=== PATIENT | female | born 1995 | race Caucasian/White ===

== ENCOUNTER 2019-04-15 04:20 | Inpatient (IN) | payer OTHER ==
[2019-04-15] VITALS (10 sets, daily range): BP systolic 105–132; BP diastolic 64–83
[~2019-04-15] VITALS: Ht 167.6 cm; Wt 75.3 kg
[~2019-04-15 04:20] MED LIST: ABILIFY MAINTE300 M1 IM; ABILIFY10 MG PO; AMOXICILLIN500 M2 PO
[2019-04-15 05:18] LABS: BILIRUBIN NEGATIVE (NEGATIVE); BLOOD 2+ (NEGATIVE); CLARITY SL CLOUDY (CLEAR); COLOR YELLOW (YELLOW); GLUCOSE NEGATIVE (NEGATIVE); KETONE NEGATIVE (NEGATIVE); LEUKO ESTERASE 3+ (NEGATIVE); NITRITE NEGATIVE (NEGATIVE); UROBILINOGEN 0.2 E.U./dl (0.2-1.0)
[2019-04-15 05:33] LABS: RBC TNTC rbc/hpf (0-2); WBC TNTC wbc/hpf (0-5)
[2019-04-15 05:34] LABS: BACTERIA 1+
[2019-04-15 06:00] LABS: BASO % 0.2 % (0.0-1.0); EOS # 0.2 10*3/uL (0.0-0.4); EOS % 1.3 % (1.0-4.0); HEMOGLOBIN 10.7 g/dl (12.0-16.0); LYMPH # 1.6 10*3/uL (1.3-4.4); LYMPH % 9.8 % (27.0-41.0); MEAN CELL VOLUME 82.9 fl (81.0-99.0); MEAN CORPUSCULAR HGB 25.4 pg (27.0-31.0); MEAN CORPUSCULAR HGB CONC 30.6 g/dl (33.0-37.0); MEAN PLATELET VOLUME 9.1 fl (9.6-12.3); MONO # 1.1 10*3/uL (0.1-1.0); NEUT % 81.4 % (47.0-73.0); PLATELET COUNT AUTOMATED 365 10*3/uL (130-400); RED BLOOD COUNT 4.22 10*6/uL (4.10-5.10); RED CELL DISTRI WIDTH 13.2 % (0-14.5)
--- NOTE | 2019-04-15 06:09 | NUR ---
PATIENT STILL IN MILD PIN BUT SHE STATES THAT HER PAIN MEDICATION DID HELP WITH HER PAIN.
[2019-04-15 06:17] LABS: ALBUMIN 3.5 gm/dl (3.1-4.5); ALKALINE PHOSPHATASE 145 U/L (45-117); BUN 13 mg/dl (7-24); CHLORIDE 105 mmol/L (98-107); LIPASE 138 U/L (73-393); POTASSIUM 3.6 mmol/L (3.5-5.1); SGOT/AST 55 IU/L (3-35); SGPT/ALT 36 U/L (12-78); SODIUM 139 mmol/L (136-145); TOTAL PROTEIN 7.2 gm/dL (6.4-8.2)
--- NOTE | 2019-04-15 11:12 | NUR ---
PT RESTING IN BED WITH EYES CLOSED.
[2019-04-15] MEDS ORDERED: [UNRECOGNIZED DRUG - OTHER] PO (11:36)
--- NOTE | 2019-04-15 11:47 | NUR ---
MSADMTime: N A 23 year old admitted to 5E under services of KARLA MANCUSO DO. Pt. arrived via bed from ER. Chief complaint: ABDM PAIN. IDANIA BARON
--- NOTE | 2019-04-15 12:47 | NUR ---
MORPHINE GIVEN FOR C/O ABDM. PAIN. RATES 8/10 ON PAIN SCALE. WILL MONITOR.
--- NOTE | 2019-04-15 13:50 | NUR ---
UNABLE TO ACESS EFFECT OF MORPHINE. PT IS IN SURGERY.
--- NOTE | 2019-04-15 17:33 | NUR ---
NORCO GIVEN FOR C/O ABDM. PAIN. RATES 8/10 ON PAIN SCALE. WILL MONITOR.
--- NOTE | 2019-04-15 18:35 | NUR ---
heriberto effective per pt.
--- NOTE | 2019-04-15 20:15 | NUR ---
RESTING IN BED WITH HOB ELEVATED. IV FLUIDS INFUSING INTO RIGHT ARM WITHOUT DIFFICULTY; SITE ASYMPTOMATIC. LUNGS CLEAR AT THIS TIME WITH NO COUGH NOTED. PT. STATED THAT SHE HAS BEEN UP WALKING IN ROOM & GOING TO THE BATHROOM. STATES THAT SHE IS VOIDING WITHOUT DIFFICULTY & HAD A BM YESTERDAY. NO DISTRESS NOTED; CALL LIGHT WITHIN REACH.
--- NOTE | 2019-04-15 20:17 | NUR ---
NEDICATED WITH MS 2 MG SLOW IV PUSH FOR C/O ABDOMINAL PAIN RATED A 4/10.
--- NOTE | 2019-04-15 20:23 | NUR ---
C/O NAUSEA; MEDICATED WITH ZOFRAN.
--- NOTE | 2019-04-15 23:52 | NUR ---
PATIENT MEDICATED WITH NORCO PER PRN ORDER FOR C/O C/O BETWEEN SHOULDER BLADES AND ABDOMINAL PAIN RATED BETWEEN 3-5/10 WITH 10 BEING THE WORST. SEE EMAR. REINFORCED USE OF CALL LIGHT.
[2019-04-16] VITALS: BP 128/73
--- NOTE | 2019-04-16 02:00 | NUR ---
RESTING IN BED; VOICES NO C/O PAIN AT THIS TIME. IV FLUIDS INFUSING ORDERED. CALL LIGHT WITHIN REACH.
--- NOTE | 2019-04-16 06:30 | NUR ---
RESTING IN BED WITH EYES CLOSED; AROUSES EASILY UPON MY ENTERING ROOM. PT. VOICES NO C/O AT THIS TIME. CALL LIGHT WITHIN REACH.
[2019-04-16 06:35] LABS: BASO % 0.2 % (0.0-1.0); EOS # 0.1 10*3/uL (0.0-0.4); EOS % 0.4 % (1.0-4.0); HEMATOCRIT 29.8 % (37.0-47.0); HEMOGLOBIN 9.2 g/dl (12.0-16.0); LYMPH # 2.1 10*3/uL (1.3-4.4); LYMPH % 16.6 % (27.0-41.0); MEAN CELL VOLUME 84.2 fl (81.0-99.0); MEAN CORPUSCULAR HGB CONC 30.9 g/dl (33.0-37.0); MEAN PLATELET VOLUME 9.4 fl (9.6-12.3); MONO # 1.1 10*3/uL (0.1-1.0); MONO % 8.3 % (3.0-9.0); NEUT # 9.4 10*3/uL (2.3-7.9); NEUT % 74.2 % (47.0-73.0); PLATELET COUNT AUTOMATED 303 10*3/uL (130-400); RED BLOOD COUNT 3.54 10*6/uL (4.10-5.10); RED CELL DISTRI WIDTH 13.4 % (0-14.5); WHITE BLOOD COUNT 12.7 10*3/uL (4.8-10.8)
[2019-04-16 06:59] LABS: ALBUMIN 2.7 gm/dl (3.1-4.5); ALKALINE PHOSPHATASE 165 U/L (45-117); BUN 12 mg/dl (7-24); CHLORIDE 109 mmol/L (98-107); CREATININE 0.88 mg/dL (0.55-1.02); PHOSPHOROUS 3.9 mg/dL (2.5-4.9); POTASSIUM 3.9 mmol/L (3.5-5.1); SGOT/AST 122 IU/L (3-35); SGPT/ALT 212 U/L (12-78); SODIUM 140 mmol/L (136-145)
[2019-04-16 08:00] VITALS: BP 114/67
--- NOTE | 2019-04-16 09:56 | NUR ---
PATIENT RESTING QUIETLY IN BED. NO VOICED COMPLAINTS. WILL CONTINUE TO MONITOR. VSS. CALL LIGHT WITHIN REACH.
[2019-04-16] MEDS ORDERED: NORCO 5-325 TA1 EACH PO (11:31)
--- NOTE | 2019-04-16 13:48 | NUR ---
Discharge instructions reviewed with patient/family. Patient receptive and verbalizes understanding. Follow-up care arranged. Written instructions given to patient/family. KELLY BERMAN.
== END 2019-04-16 13:48 | disposition home or self-care (01) | DRG 951 ==
LOC: ED 04:20 → 5E 10:52
PROVIDERS: Emergency Medicine; Surgery; ADMIT Internal Medicine
PROC: 0FT44ZZ Resection of Gallbladder, Percutaneous Endoscopic Approach (ICD-10-PCS; principal; 2019-04-15)
DX: O85 Puerperal sepsis (principal); R65.20 Severe sepsis without septic shock; K81.0 Acute cholecystitis; A59.03 Trichomonal cystitis and urethritis; G89.18 Other acute postprocedural pain; R74.0 Nonspecific elevation of levels of transaminase and lactic acid dehydrogenase [LDH]; D50.9 Iron deficiency anemia, unspecified; O99.03 Anemia complicating the puerperium; O25.3 Malnutrition in the puerperium; F20.9 Schizophrenia, unspecified; O99.63 Diseases of the digestive system complicating the puerperium; O99.345 Other mental disorders complicating the puerperium; O99.89 Other specified diseases and conditions complicating pregnancy, childbirth and the puerperium; F41.9 Anxiety disorder, unspecified; F32.9 Major depressive disorder, single episode, unspecified; R00.1 Bradycardia, unspecified; E87.8 Other disorders of electrolyte and fluid balance, not elsewhere classified; Z91.040 Latex allergy status; Z82.49 Family history of ischemic heart disease and other diseases of the circulatory system; Z79.899 Other long term (current) drug therapy

== ENCOUNTER 2019-06-16 16:06 | Emergency (ER) | payer OTHER ==
[~2019-06-16] VITALS: Ht 172.7 cm; Wt 65.8 kg
[~2019-06-16 16:06] MED LIST changes: +NORCO 5-325 TA1 EACH PO; +[UNRECOGNIZED DRUG - OTHER] PO
[2019-06-16 17:17] LABS: BASO % 0.4 % (0.0-1.0); EOS # 0.3 10*3/uL (0.0-0.4); EOS % 3.5 % (1.0-4.0); HEMATOCRIT 35.9 % (37.0-47.0); HEMOGLOBIN 10.7 g/dl (12.0-16.0); LYMPH # 3.4 10*3/uL (1.3-4.4); LYMPH % 35.4 % (27.0-41.0); MEAN CELL VOLUME 78.4 fl (81.0-99.0); MEAN CORPUSCULAR HGB 23.4 pg (27.0-31.0); MEAN CORPUSCULAR HGB CONC 29.8 g/dl (33.0-37.0); MEAN PLATELET VOLUME 9.5 fl (9.6-12.3); MONO # 0.8 10*3/uL (0.1-1.0); MONO % 7.7 % (3.0-9.0); NEUT # 5.1 10*3/uL (2.3-7.9); NEUT % 52.8 % (47.0-73.0); PLATELET COUNT AUTOMATED 307 10*3/uL (130-400); RED BLOOD COUNT 4.58 10*6/uL (4.10-5.10); RED CELL DISTRI WIDTH 14.7 % (0-14.5); WHITE BLOOD COUNT 9.7 10*3/uL (4.8-10.8)
[2019-06-16 17:32] LABS: ALBUMIN 3.8 gm/dl (3.1-4.5); ALKALINE PHOSPHATASE 78 U/L (45-117); BUN 9 mg/dl (7-24); CHLORIDE 109 mmol/L (98-107); CREATININE 0.75 mg/dL (0.55-1.02); LIPASE 93 U/L (73-393); POTASSIUM 3.8 mmol/L (3.5-5.1); SGOT/AST 17 IU/L (3-35); SGPT/ALT 20 U/L (12-78); SODIUM 140 mmol/L (136-145); TOTAL PROTEIN 7.4 gm/dL (6.4-8.2)
[2019-06-16 18:02] LABS: CLARITY CLOUDY (CLEAR); COLOR YELLOW (YELLOW)
[2019-06-16 18:03] LABS: BILIRUBIN NEGATIVE (NEGATIVE); BLOOD TRACE-INTACT (NEGATIVE); GLUCOSE NEGATIVE (NEGATIVE); KETONE NEGATIVE (NEGATIVE); LEUKO ESTERASE 3+ (NEGATIVE); NITRITE NEGATIVE (NEGATIVE); PH 6.5 (5.0-9.0); SPECIFIC GRAVITY 1.015 (1.005-1.030); UROBILINOGEN 0.2 E.U./dl (0.2-1.0)
[2019-06-16 18:04] LABS: BACTERIA 2+; EPITHELIAL CELLS TNTC; WBC 51-100 wbc/hpf (0-5)
[2019-06-16] MEDS ORDERED: SEPTDS PO (18:29)
== END 2019-06-16 18:40 | disposition home or self-care (01) ==
LOC: ED 16:06
PROVIDERS: Physician Assistant
DX: N39.0 Urinary tract infection, site not specified (principal); R11.2 Nausea with vomiting, unspecified; Z91.040 Latex allergy status; Z79.899 Other long term (current) drug therapy; Z90.49 Acquired absence of other specified parts of digestive tract

== ENCOUNTER 2019-07-15 22:20 | Inpatient (IN) | payer OTHER ==
[~2019-07-15] VITALS: Ht 172.7 cm; Wt 73.9 kg
[~2019-07-15 22:20] MED LIST changes: +SEPTDS PO
[2019-07-15 22:26] VITALS: BP 132/75
[2019-07-15 23:37] LABS: BILIRUBIN NEGATIVE (NEGATIVE); BLOOD NEGATIVE (NEGATIVE); CLARITY SL CLOUDY (CLEAR); COLOR YELLOW (YELLOW); GLUCOSE NEGATIVE (NEGATIVE); KETONE TRACE (NEGATIVE); LEUKO ESTERASE 2+ (NEGATIVE); NITRITE NEGATIVE (NEGATIVE); UROBILINOGEN 0.2 E.U./dl (0.2-1.0)
[2019-07-15 23:38] LABS: EPITHELIAL CELLS 40-45
[2019-07-15 23:39] LABS: BACTERIA 1+; WBC 16-20 wbc/hpf (0-5)
[2019-07-15 23:50] LABS: BASO # 0.1 10*3/uL (0.0-0.1); BASO % 0.3 % (0.0-1.0); EOS # 0.2 10*3/uL (0.0-0.4); EOS % 1.1 % (1.0-4.0); HEMATOCRIT 43.8 % (37.0-47.0); LYMPH % 4.4 % (27.0-41.0); MEAN CELL VOLUME 77.7 fl (81.0-99.0); MEAN CORPUSCULAR HGB CONC 29.7 g/dl (33.0-37.0); MEAN PLATELET VOLUME 9.7 fl (9.6-12.3); MONO # 1.5 10*3/uL (0.1-1.0); MONO % 6.6 % (3.0-9.0); NEUT # 19.1 10*3/uL (2.3-7.9); NEUT % 87.2 % (47.0-73.0); PLATELET COUNT AUTOMATED 378 10*3/uL (130-400); RED BLOOD COUNT 5.64 10*6/uL (4.10-5.10); RED CELL DISTRI WIDTH 15.9 % (0-14.5); WHITE BLOOD COUNT 21.9 10*3/uL (4.8-10.8)
[2019-07-16 00:05] LABS: ALBUMIN 4.4 gm/dl (3.1-4.5); ALKALINE PHOSPHATASE 97 U/L (45-117); BUN 13 mg/dl (7-24); CHLORIDE 104 mmol/L (98-107); CREATININE 0.95 mg/dL (0.55-1.02); POTASSIUM 3.9 mmol/L (3.5-5.1); SGOT/AST 16 IU/L (3-35); SGPT/ALT 22 U/L (12-78); SODIUM 137 mmol/L (136-145); TOTAL PROTEIN 8.6 gm/dL (6.4-8.2)
[2019-07-16 01:50] VITALS: BP 135/92
[2019-07-16 06:19] LABS: HEMOGLOBIN 12.2 g/dl (12.0-16.0); MEAN CELL VOLUME 77.4 fl (81.0-99.0); MEAN CORPUSCULAR HGB CONC 29.8 g/dl (33.0-37.0); MEAN PLATELET VOLUME 10.1 fl (9.6-12.3); PLATELET COUNT AUTOMATED 315 10*3/uL (130-400); RED CELL DISTRI WIDTH 16.1 % (0-14.5); WHITE BLOOD COUNT 17.5 10*3/uL (4.8-10.8)
[2019-07-16 06:51] LABS: BUN 15 mg/dl (7-24); CHLORIDE 109 mmol/L (98-107); CREATININE 0.96 mg/dL (0.55-1.02); SODIUM 140 mmol/L (136-145)
[2019-07-16 07:39] LABS: MICROCYTOSIS SLIGHT; PLATELET SUFFICIENCY NORMAL (NORMAL); TOTAL CELLS COUNTED 100 #CELLS
[2019-07-16 08:00] VITALS: BP 124/62
[2019-07-16 16:00] VITALS: BP 128/68
[2019-07-17] VITALS: BP 112/61
[2019-07-17 08:00] VITALS: BP 92/44
[2019-07-17 16:00] VITALS: BP 110/58
[2019-07-17 20:00] VITALS: BP 113/80
[2019-07-18] VITALS: BP 113/63
[2019-07-18 06:52] LABS: BASO % 0.2 % (0.0-1.0); EOS # 0.2 10*3/uL (0.0-0.4); EOS % 2.4 % (1.0-4.0); HEMATOCRIT 30.2 % (37.0-47.0); HEMOGLOBIN 8.9 g/dl (12.0-16.0); LYMPH # 3.2 10*3/uL (1.3-4.4); LYMPH % 39.3 % (27.0-41.0); MEAN CELL VOLUME 78.6 fl (81.0-99.0); MEAN CORPUSCULAR HGB 23.2 pg (27.0-31.0); MEAN CORPUSCULAR HGB CONC 29.5 g/dl (33.0-37.0); MEAN PLATELET VOLUME 10.5 fl (9.6-12.3); MONO # 0.7 10*3/uL (0.1-1.0); MONO % 9.1 % (3.0-9.0); NEUT # 3.9 10*3/uL (2.3-7.9); NEUT % 48.8 % (47.0-73.0); PLATELET COUNT AUTOMATED 243 10*3/uL (130-400); RED BLOOD COUNT 3.84 10*6/uL (4.10-5.10); RED CELL DISTRI WIDTH 16.9 % (0-14.5)
[2019-07-18 07:24] LABS: CHLORIDE 114 mmol/L (98-107); POTASSIUM 3.5 mmol/L (3.5-5.1); SODIUM 143 mmol/L (136-145)
[2019-07-18 07:28] LABS: BUN 10 mg/dl (7-24); CREATININE 0.74 mg/dL (0.55-1.02)
[2019-07-18 08:00] VITALS: BP 123/65
[2019-07-18 12:00] VITALS: BP 118/70
[2019-07-18 16:00] VITALS: BP 119/62
[2019-07-18 20:00] VITALS: BP 125/72
[2019-07-19] VITALS: BP 116/78
[2019-07-19 07:12] LABS: BASO % 0.3 % (0.0-1.0); EOS # 0.3 10*3/uL (0.0-0.4); EOS % 4.2 % (1.0-4.0); LYMPH # 2.7 10*3/uL (1.3-4.4); LYMPH % 40.4 % (27.0-41.0); MEAN CELL VOLUME 77.5 fl (81.0-99.0); MEAN CORPUSCULAR HGB 23.3 pg (27.0-31.0); MEAN PLATELET VOLUME 10.7 fl (9.6-12.3); MONO # 0.6 10*3/uL (0.1-1.0); MONO % 8.4 % (3.0-9.0); NEUT # 3.1 10*3/uL (2.3-7.9); NEUT % 46.4 % (47.0-73.0); PLATELET COUNT AUTOMATED 231 10*3/uL (130-400); RED BLOOD COUNT 3.87 10*6/uL (4.10-5.10); RED CELL DISTRI WIDTH 16.6 % (0-14.5); WHITE BLOOD COUNT 6.7 10*3/uL (4.8-10.8)
[2019-07-19 07:28] LABS: BUN 7 mg/dl (7-24); CHLORIDE 112 mmol/L (98-107); CREATININE 0.73 mg/dL (0.55-1.02); POTASSIUM 3.7 mmol/L (3.5-5.1); SODIUM 142 mmol/L (136-145)
[2019-07-19 08:00] VITALS: BP 125/74
[2019-07-19] MEDS ORDERED: HYOSCYAMINE0.125 M2 PO (10:51)
[2019-07-19] MEDS ORDERED: QUESTRAN LIGHT4 GM PO (10:51)
== END 2019-07-19 11:45 | disposition home or self-care (01) | DRG 463 ==
LOC: ED 22:20 → 5E 07-16 01:22
PROVIDERS: Nurse Practitioner; ADMIT Internal Medicine
DX: N10 Acute pyelonephritis (principal); F41.1 Generalized anxiety disorder; F20.9 Schizophrenia, unspecified; F32.9 Major depressive disorder, single episode, unspecified; A08.4 Viral intestinal infection, unspecified; Z90.49 Acquired absence of other specified parts of digestive tract; Z91.040 Latex allergy status; Z82.49 Family history of ischemic heart disease and other diseases of the circulatory system

== ENCOUNTER 2021-12-14 10:35 | Emergency (ER) | payer OTHER ==
[~2021-12-14] VITALS: Ht 172.7 cm; Wt 77.1 kg
[~2021-12-14 10:35] MED LIST changes: +HYOSCYAMINE0.125 M2 PO; +QUESTRAN LIGHT4 GM PO
[2021-12-14] MEDS ORDERED: Ondansetron4 MG PO ×2 (10:55)
[2021-12-14 11:03] LABS: BASO % 0.2 % (0.0-1.0); EOS % 0.3 % (1.0-4.0); HEMATOCRIT 42.6 % (37.0-47.0); LYMPH # 1.3 10*3/uL (1.3-4.4); LYMPH % 10.8 % (27.0-41.0); MEAN CELL VOLUME 83.7 fl (81.0-99.0); MEAN CORPUSCULAR HGB 27.3 pg (27.0-31.0); MEAN CORPUSCULAR HGB CONC 32.6 g/dl (33.0-37.0); MEAN PLATELET VOLUME 9.5 fl (9.6-12.3); MONO # 1.1 10*3/uL (0.1-1.0); MONO % 9.1 % (3.0-9.0); NEUT # 9.6 10*3/uL (2.3-7.9); NEUT % 79.2 % (47.0-73.0); PLATELET COUNT AUTOMATED 222 10*3/uL (130-400); RED BLOOD COUNT 5.09 10*6/uL (4.10-5.10); RED CELL DISTRI WIDTH 13.9 % (0-14.5); WHITE BLOOD COUNT 12.1 10*3/uL (4.8-10.8)
[2021-12-14 11:19] LABS: ALKALINE PHOSPHATASE 85 U/L (45-117); BUN 5 mg/dl (7-24); CHLORIDE 107 mmol/L (98-107); CREATININE 0.63 mg/dL (0.55-1.02); POTASSIUM 3.7 mmol/L (3.5-5.1); SGOT/AST 11 IU/L (3-35); SGPT/ALT 16 U/L (12-78); SODIUM 135 mmol/L (136-145); TOTAL PROTEIN 7.7 gm/dL (6.4-8.2)
[2021-12-14] MEDS ORDERED: PHENERGAN25 M3 PO (12:00)
== END 2021-12-14 12:14 | disposition home or self-care (01) ==
LOC: ED 10:35
PROVIDERS: Emergency Medicine
DX: J10.1 Influenza due to other identified influenza virus with other respiratory manifestations (principal); Z20.822 Contact with and (suspected) exposure to COVID-19; R11.2 Nausea with vomiting, unspecified; Z91.040 Latex allergy status; Z79.899 Other long term (current) drug therapy; Z90.49 Acquired absence of other specified parts of digestive tract

== ENCOUNTER 2021-12-14 20:09 | Emergency (ER) | payer OTHER ==
[~2021-12-14] VITALS: Ht 172.7 cm; Wt 79.4 kg
[~2021-12-14 20:09] MED LIST changes: +Ondansetron4 MG PO; +PHENERGAN25 M3 PO
== END 2021-12-14 21:21 | disposition home or self-care (01) ==
LOC: ED 20:09
PROVIDERS: Physician Assistant
DX: S30.860A Insect bite (nonvenomous) of lower back and pelvis, initial encounter (principal); Z90.49 Acquired absence of other specified parts of digestive tract; Z79.899 Other long term (current) drug therapy; Z91.040 Latex allergy status; W57.XXXA Bitten or stung by nonvenomous insect and other nonvenomous arthropods, initial encounter; Y93.89 Activity, other specified; Y92.89 Other specified places as the place of occurrence of the external cause; Y99.8 Other external cause status

== ENCOUNTER 2022-05-27 07:07 | Emergency (ER) | payer OTHER ==
[~2022-05-27] VITALS: Ht 172.7 cm; Wt 95.7 kg
[2022-05-27] MEDS ORDERED: AMOXICILLIN500 M3 PO (08:12)
[2022-05-27] MEDS ORDERED: TRIMOX,POL250 MG/5 M PO (08:38)
== END 2022-05-27 08:20 | disposition home or self-care (01) ==
LOC: ED 07:07
DX: O99.513 Diseases of the respiratory system complicating pregnancy, third trimester (principal); J02.0 Streptococcal pharyngitis; Z3A.34 34 weeks gestation of pregnancy; Z91.040 Latex allergy status; Z90.49 Acquired absence of other specified parts of digestive tract

== ENCOUNTER 2022-07-21 07:49 | Emergency (ER) | payer OTHER ==
[~2022-07-21] VITALS: Wt 95.3 kg
[~2022-07-21 07:49] MED LIST changes: +AMOXICILLIN500 M3 PO; +TRIMOX,POL250 MG/5 M PO
[2022-07-21] MEDS ORDERED: CLEOCIN75 MG/5 ML PO (08:13)
== END 2022-07-21 08:19 | disposition home or self-care (01) ==
LOC: ED 07:49
DX: K08.89 Other specified disorders of teeth and supporting structures (principal); F32.A Depression, unspecified; F41.9 Anxiety disorder, unspecified; Z91.040 Latex allergy status; Z90.49 Acquired absence of other specified parts of digestive tract

== ENCOUNTER 2023-03-15 19:55 | Emergency (ER) | payer OTHER ==
[~2023-03-15] VITALS: Ht 162.5 cm; Wt 59.0 kg
[~2023-03-15 19:55] MED LIST changes: +CLEOCIN75 MG/5 ML PO
== END 2023-03-15 21:38 | disposition home or self-care (01) ==
LOC: ED 19:55
DX: J02.9 Acute pharyngitis, unspecified (principal); B97.4 Respiratory syncytial virus as the cause of diseases classified elsewhere; Z20.822 Contact with and (suspected) exposure to COVID-19; R19.7 Diarrhea, unspecified; R11.0 Nausea; F17.200 Nicotine dependence, unspecified, uncomplicated; Z91.040 Latex allergy status; Z79.2 Long term (current) use of antibiotics; Z79.899 Other long term (current) drug therapy; Z90.49 Acquired absence of other specified parts of digestive tract

== ENCOUNTER 2023-09-07 17:56 | Emergency (ER) | payer OTHER ==
[~2023-09-07] VITALS: Ht 172.7 cm; Wt 68.0 kg
[2023-09-07] MEDS ORDERED: Naloxone Hydrochloride 2 MG/2 ML SYR ONE (18:13)
[2023-09-07] MEDS ORDERED: Midazolam Hydrochloride 5 MG/ML VIAL INH ONE (18:20)
[2023-09-07 18:25] LABS: BASO % 0.1 % (0.0-1.0); HEMATOCRIT 37.4 % (37.0-47.0); LYMPH # 1.4 10*3/uL (1.3-4.4); LYMPH % 10.2 % (27.0-41.0); MEAN CELL VOLUME 78.7 fl (81.0-99.0); MEAN CORPUSCULAR HGB 25.1 pg (27.0-31.0); MEAN CORPUSCULAR HGB CONC 31.8 g/dl (33.0-37.0); MEAN PLATELET VOLUME 8.9 fl (9.6-12.3); MONO # 0.9 10*3/uL (0.1-1.0); MONO % 6.7 % (3.0-9.0); NEUT # 11.3 10*3/uL (2.3-7.9); NEUT % 82.6 % (47.0-73.0); PLATELET COUNT AUTOMATED 331 10*3/uL (130-400); RED BLOOD COUNT 4.75 10*6/uL (4.10-5.10); RED CELL DISTRI WIDTH 14.2 % (0-14.5); WHITE BLOOD COUNT 13.7 10*3/uL (4.8-10.8)
[2023-09-07] MEDS ORDERED: ELFOLATE7.5 MG PO (18:34)
[2023-09-07] MEDS ORDERED: PRISTIQ50 MG PO (18:34)
[2023-09-07] MEDS ORDERED: DIAZEPAM5 MG PO (18:34)
[2023-09-07] MEDS ORDERED: INCASSIA0.35 MG PO (18:35)
[2023-09-07] MEDS ORDERED: DOCUSATE SOD100 MG PO (18:36)
[2023-09-07 18:46] LABS: ALKALINE PHOSPHATASE 81 U/L (46-116); BUN 7 mg/dl (9-23); CHLORIDE 107 mmol/L (98-107); POTASSIUM 3.2 mmol/L (3.4-5.1); SGPT/ALT 13 U/L (5-49); TOTAL PROTEIN 8.3 gm/dL (6.0-8.0)
[2023-09-07] MEDS ORDERED: Ziprasidone Mesylate 20 MG VIAL IM ONE (19:05)
[2023-09-07] MEDS ORDERED: Water, Sterile 10 ML VIAL IM ONE (19:15)
[2023-09-07] MEDS ORDERED: Water, Sterile 10 ML VIAL ONE (19:21)
[2023-09-07 19:41] LABS: BILIRUBIN Negative (Negative); BLOOD 3+ (Negative); CLARITY Cloudy (Clear); COLOR Yellow (Yellow); GLUCOSE Negative (Negative); KETONE 3+ (Negative); NITRITE Negative (Negative); PH 5.5 (4.5-8.0); SPECIFIC GRAVITY >= 1.030 (1.001-1.030)
[2023-09-07 19:47] LABS: URINE AMPHETAMINES Negative (1000ng/ml); URINE BARBITURATES Negative (200ng/ml); URINE BENZODIAZEPINES Positive (200ng/ml); URINE CANNABINOIDS (THC) Positive (50ng/ml); URINE COCAINE Negative (300ng/ml); URINE METHADONE Negative (300ng/ml); URINE OPIATES Negative (300ng/ml); URINE PHENCYCLIDINE Negative (25ng/ml)
[2023-09-07 19:49] LABS: BACTERIA 1+; EPITHELIAL CELLS 21-30; LEUKO ESTERASE 1+ (Negative); MUCOUS 1+; WBC 16-20 wbc/hpf (0-5)
[2023-09-08] MEDS ORDERED: POTASSIUM CHLORIDE 20 MEQ TAB PO ONE (06:45)
[2023-09-08] MEDS ORDERED: Fosfomycin Tromethamine 3 GM PDS PO ONE (06:45)
== END 2023-09-08 08:08 ==
LOC: ED 17:56
PROVIDERS: Physician Assistant Medical
DX: F29 Unspecified psychosis not due to a substance or known physiological condition (principal); Z91.040 Latex allergy status; Z79.899 Other long term (current) drug therapy; Z90.49 Acquired absence of other specified parts of digestive tract

== ENCOUNTER 2023-09-29 22:24 | Emergency (ER) | payer OTHER ==
[~2023-09-29] VITALS: Ht 172.7 cm; Wt 69.4 kg
[~2023-09-29 22:24] MED LIST changes: +DIAZEPAM5 MG PO; +DOCUSATE SOD100 MG PO; +ELFOLATE7.5 MG PO; +INCASSIA0.35 MG PO; +PRISTIQ50 MG PO
[2023-09-29 23:45] LABS: BILIRUBIN Negative (Negative); BLOOD Negative (Negative); CLARITY Clear (Clear); COLOR Yellow (Yellow); GLUCOSE Negative (Negative); KETONE Negative (Negative); LEUKO ESTERASE Negative (Negative); NITRITE Negative (Negative); PH 7.5 (4.5-8.0); UROBILINOGEN 0.2 E.U./dl (0.0-1.0)
[2023-09-29 23:53] LABS: EPITHELIAL CELLS 21-30; WBC 0-2 wbc/hpf (0-5)
[2023-09-30] MEDS ORDERED: CEPHALEXIN500 M1 PO (00:16)
[2023-09-30] MEDS ORDERED: CEPHALEXIN 500 MG CAP PO ONE (00:20)
== END 2023-09-30 00:45 | disposition home or self-care (01) ==
LOC: ED 22:24
PROVIDERS: Emergency Medicine
DX: R30.0 Dysuria (principal); R35.0 Frequency of micturition; R30.9 Painful micturition, unspecified; M54.50 Low back pain, unspecified; E43 Unspecified severe protein-calorie malnutrition; F41.9 Anxiety disorder, unspecified; F32.A Depression, unspecified; Z98.51 Tubal ligation status; Z91.040 Latex allergy status; Z79.899 Other long term (current) drug therapy; Z90.49 Acquired absence of other specified parts of digestive tract

== ENCOUNTER 2023-11-12 11:16 | Emergency (ER) | payer OTHER ==
[~2023-11-12] VITALS: Ht 172.7 cm; Wt 64.4 kg
[~2023-11-12 11:16] MED LIST changes: +CEPHALEXIN500 M1 PO
[2023-11-12 11:59] LABS: BILIRUBIN Negative (Negative); BLOOD 3+ (Negative); CLARITY Clear (Clear); COLOR Yellow (Yellow); GLUCOSE Negative (Negative); KETONE Negative (Negative); LEUKO ESTERASE Negative (Negative); NITRITE Negative (Negative); PH 5.5 (4.5-8.0); UROBILINOGEN 0.2 E.U./dl (0.0-1.0)
[2023-11-12 12:06] LABS: BASO # 0.1 10*3/uL (0.0-0.1); BASO % 0.5 % (0.0-1.0); EOS # 0.6 10*3/uL (0.0-0.4); EOS % 6.9 % (1.0-4.0); HEMATOCRIT 37.6 % (37.0-47.0); LYMPH # 2.4 10*3/uL (1.3-4.4); LYMPH % 25.9 % (27.0-41.0); MEAN CELL VOLUME 82.6 fl (81.0-99.0); MEAN CORPUSCULAR HGB 24.6 pg (27.0-31.0); MEAN CORPUSCULAR HGB CONC 29.8 g/dl (33.0-37.0); MEAN PLATELET VOLUME 9.2 fl (9.6-12.3); MONO # 0.7 10*3/uL (0.1-1.0); MONO % 7.7 % (3.0-9.0); NEUT # 5.5 10*3/uL (2.3-7.9); NEUT % 58.6 % (47.0-73.0); PLATELET COUNT AUTOMATED 321 10*3/uL (130-400); RED BLOOD COUNT 4.55 10*6/uL (4.10-5.10); RED CELL DISTRI WIDTH 14.6 % (0-14.5); WHITE BLOOD COUNT 9.3 10*3/uL (4.8-10.8)
[2023-11-12 12:08] LABS: RBC TNTC rbc/hpf (0-2)
[2023-11-12 12:31] LABS: ALKALINE PHOSPHATASE 92 U/L (46-116); BETA-HCG, QUANT < 3.0 mIU/mL (3-10); BUN 11 mg/dl (9-23); CHLORIDE 107 mmol/L (98-107); POTASSIUM 4.4 mmol/L (3.4-5.1); SGPT/ALT 11 U/L (5-49); TOTAL PROTEIN 7.1 gm/dL (6.0-8.0)
[2023-11-12 12:57] LABS: ACT PARTIAL THROMBO TIME 26.2 SECONDS (20.0-32.1)
== END 2023-11-12 13:38 | disposition left against medical advice (07) ==
LOC: ED 11:16
PROVIDERS: Emergency Medicine
DX: N93.9 Abnormal uterine and vaginal bleeding, unspecified (principal); N92.0 Excessive and frequent menstruation with regular cycle; Z53.29 Procedure and treatment not carried out because of patient's decision for other reasons; Z91.040 Latex allergy status; Z90.49 Acquired absence of other specified parts of digestive tract; Z98.890 Other specified postprocedural states

== ENCOUNTER 2024-02-17 07:07 | Emergency (ER) | payer OTHER ==
[~2024-02-17] VITALS: Wt 74.8 kg
[2024-02-17] MEDS ORDERED: ACETAMINOPHEN 325 MG TAB PO ONE (07:30)
[2024-02-17] MEDS ORDERED: CEPACOL SORETH1 EACH PO (08:58)
[2024-02-17] MEDS ORDERED: MEDROL DOSEPAK4 MG PO (08:58)
== END 2024-02-17 09:31 | disposition home or self-care (01) ==
LOC: ED 07:07
DX: B34.9 Viral infection, unspecified (principal); Z20.822 Contact with and (suspected) exposure to COVID-19; F32.A Depression, unspecified; F41.9 Anxiety disorder, unspecified; Z91.040 Latex allergy status; Z98.890 Other specified postprocedural states; Z90.49 Acquired absence of other specified parts of digestive tract

== ENCOUNTER 2024-02-19 11:13 | Emergency (ER) | payer OTHER ==
[~2024-02-19] VITALS: Ht 170.1 cm; Wt 75.6 kg
[~2024-02-19 11:13] MED LIST changes: +CEPACOL SORETH1 EACH PO; +MEDROL DOSEPAK4 MG PO
[2024-02-19] MEDS ORDERED: LURASIDONE HCL40 MG PO (11:28)
[2024-02-19] MEDS ORDERED: MINIPRESS1 M1 PO (11:28)
[2024-02-19] MEDS ORDERED: LITHIUM CARBON300 MG PO (11:28)
[2024-02-19] MEDS ORDERED: DESVENLAFAXINE100 M3 PO (11:34)
[2024-02-19] MEDS ORDERED: methylPREDNISolone sod succ 40 MG VIAL IM ONE (11:40)
[2024-02-19] MEDS ORDERED: ACETAMINOPHEN 325 MG TAB PO ONE (11:40)
[2024-02-19] MEDS ORDERED: PREDNISONE50 MG PO (11:41)
[2024-02-19] MEDS ORDERED: AMOX-CLAV 875-1 EACH PO (14:14)
== END 2024-02-19 12:32 | disposition home or self-care (01) ==
LOC: ED 11:13
DX: J02.9 Acute pharyngitis, unspecified (principal); F41.9 Anxiety disorder, unspecified; F32.A Depression, unspecified; Z91.040 Latex allergy status; Z90.49 Acquired absence of other specified parts of digestive tract; Z98.890 Other specified postprocedural states

== ENCOUNTER 2024-09-17 11:21 | Emergency (ER) | payer OTHER ==
[~2024-09-17] VITALS: Ht 172.7 cm; Wt 73.5 kg
[~2024-09-17 11:21] MED LIST changes: +AMOX-CLAV 875-1 EACH PO; +DESVENLAFAXINE100 M3 PO; +LITHIUM CARBON300 MG PO; +LURASIDONE HCL40 MG PO; +MINIPRESS1 M1 PO; +PREDNISONE50 MG PO
[2024-09-17] MEDS ORDERED: VYVANSE30 MG PO (11:39)
[2024-09-17] MEDS ORDERED: MELOXICAM15 MG PO (11:59)
[2024-09-17] MEDS ORDERED: VALTREX1000 MG PO (11:59)
== END 2024-09-17 12:10 | disposition home or self-care (01) ==
LOC: ED 11:21
DX: A60.04 Herpesviral vulvovaginitis (principal); Z91.040 Latex allergy status; Z79.899 Other long term (current) drug therapy; Z90.49 Acquired absence of other specified parts of digestive tract